=== PATIENT | male | born 1965 | race Caucasian/White ===

== ENCOUNTER 2017-07-11 07:02 | Day surgery (SDC) | payer BC ==
[~2017-07-11] VITALS: Ht 177.8 cm; Wt 90.4 kg
[2017-07-11] MEDS ORDERED: MULTI VITAMINS1 TAB PO (07:32)
[2017-07-11 07:38] VITALS: BP 123/85; PULSE 58; TEMP 97.6
[2017-07-11 08:43] VITALS: BP 113/84; PULSE 54; TEMP 97.7
[2017-07-11 08:58] VITALS: BP 108/78; PULSE 55
[2017-07-11 09:13] VITALS: BP 94/76; PULSE 61
[2017-07-11 09:41] VITALS: BP 108/80; PULSE 52
== END 2017-07-11 09:40 | disposition home or self-care (01) ==
LOC: SDCO 07:02
DX: Z12.11 Encounter for screening for malignant neoplasm of colon (principal); K62.1 Rectal polyp; Z88.0 Allergy status to penicillin; Z88.8 Allergy status to other drugs, medicaments and biological substances; Z83.71 Family history of colonic polyps
CPT/HCPCS: J2250; J3010; J7030

== ENCOUNTER 2022-08-09 06:36 | Day surgery (SDC) | payer BC ==
[~2022-08-09] VITALS: Ht 177.8 cm; Wt 79.8 kg
[~2022-08-09 06:36] MED LIST: MULTI VITAMINS1 TAB PO
[2022-08-09] MEDS ORDERED: ZYLOPRIM 100MG100 MG PO (07:06)
[2022-08-09 07:20] VITALS: BP 113/77; PULSE 53; TEMP 97.4
[2022-08-09 08:15] VITALS: BP 112/74; PULSE 54; TEMP 97.4
[2022-08-09 08:30] VITALS: BP 122/92; PULSE 60
[2022-08-09 08:40] VITALS: BP 124/86; PULSE 56
--- NOTE | 2022-08-09 08:40 | NUR ---
0815 RETURNS TO ROOM 1 PER CART. AWAKE, ALERT. AMBULATES TO RECLINER WITH STANDBY ASSIST. RESP UNLABORED. DENIES NAUSEA OR ABD PAIN. VITAL SIGNS OBTAINED. CALL LIGHT AT SIDE. HERE 0825 DISCHARGE INSTRUCTIONS REVIEWED. PATIENT TOLERATES PO JUICE AND MUFFIN WITHOUT NAUSEA. 0838 DRESSES SELF
== END 2022-08-09 08:44 | disposition home or self-care (01) ==
LOC: SDCO 06:36
DX: Z12.11 Encounter for screening for malignant neoplasm of colon (principal); D12.5 Benign neoplasm of sigmoid colon; K57.30 Diverticulosis of large intestine without perforation or abscess without bleeding; Z83.71 Family history of colonic polyps
CPT/HCPCS: J2704; J7120